=== PATIENT | male | born 1985 | race African-American/Black ===

== ENCOUNTER 2016-12-05 14:24 | Emergency (ER) | payer OTHER ==
[2016-12-05 14:29] VITALS: RESP 16; TEMP 98.2
[2016-12-05] MEDS ORDERED: IBUPROFEN 600 MG TAB PO ONE (14:29)
--- NOTE | 2016-12-05 15:13 | DX ---
Right Ankle 3 Views History: Fall today, pain. Comparison: None available. Findings: There is subtle lucency through the anterolateral aspect of the calcaneus, suggesting a non displaced fracture. Alignment is normal. Bone mineralization is normal. The talar dome and ankle mort ise are intact. There is mild soft tissue swelling. There is no joint effusion. Impression: Probable nondisplaced anterolateral calcaneal fracture. Findings discussed with Jaz Mckinnon today at 1511 hours.
--- NOTE | 2016-12-05 15:16 | EDPHY ---
H & P Time Seen by Provider: 12/05/16 14:49 HPI/ROS: CHIEF COMPLAINT: Right ankle pain HISTORY OF PRESENT ILLNESS: 31-year-old male via private vehicle complaining of acute right lateral ankle pain. Prior history of ankle fracture several years ago. Walking down stairs, slipped and twisted his ankle. He is unable to bear weight secondary to pain. No proximal pain or injury. No head injury. Tetanus up-to-date. No back pain. No neck pain. No peripheral paresthesia, weakness, numbness. No incontinence or retention. No saddle anesthesia. No straddle PRIMARY CARE PROVIDER: REVIEW OF SYSTEMS: A ten point review of systems was performed and is negative with the exception of the items mentioned in the HPI PHYSICAL EXAM injury. 5) LUNGS: Clear auscultation bilaterally, no wheezes, no rhonchi, no retractions. 6) HEART: Regular rate and rhythm, no murmur, no heave, no gallop. 7) ABDOMEN: No guarding, no rebound, no focal tenderness, negative McBurney's, negative Harrison's, negative Rovsing's, negative peritoneal sign, 8) MUSCULOSKELETAL: Right lower extremity: Tender palpation inferior buttock with soft compartments. Right thigh nontender. Right knee and proximal tibia fibula nontender. The right ankle lateral aspect is tender palpation with a noted abrasion no puncture wounds peer the foot is nontender. There is mild tenderness in the posterior calcaneus. There is no deformity. There is no crepitus. There soft compartments of the lower extremity including the foot.DP PT pulses are present and brisk with brisk capillary refill. 9) BACK: No CVA tenderness, no midline vertebral tenderness, no fluctuance, no step-off, no obvious trauma, no visual or palpable abnormality. 10) SKIN: No rash, no petechiae. 11) Psychiatric: Patient is oriented X 3, there is no agitation. DIFFERENTIAL DIAGNOSIS: in no particular order including but not limited to fracture, sprain, compartment syndrome Xray of the right ankle interpreted by myself: no definitive acute osseous abnormality Procedure: Crutches indications for crutch use discussed with patient. Patient fitted for crutches by ER staff. Observed ambulating with crutches. I think the patient has the capacity to safely use crutches. Usual and customary crutch walking precautions provided Procedure: Splint A posterior Ortho Glass splint was applied by ER global position system technician. After application of the splint I returned and re-examined the patient. The splint was adequately immobilizing the joint and distal to the splint the patient's circulation and sensation were intact. Patient shows no signs of compartment syndrome. Was given orthopedic precautions. Recommend nonweightbearing Smoking Status: Former smoker Constitutional: Initial Vital Signs Temperature (C) 36.8 C 12/05/16 14:25 Heart Rate 79 12/05/16 14:25 Respiratory Rate 16 12/05/16 14:25 Blood Pressure 131/82 H 12/05/16 14:25 O2 Sat (%) 96 12/05/16 14:25 O2 Delivery Mode Room Air Allergies/Adverse Reactions: No Known Allergies Allergy (Unverified 12/21/10 19:23) Home Medications: Medication Instructions Recorded oxyCODONE/APAP 5/325 [Percocet 1 tab PO Q6 #10 tab 12/05/16 5/325] MDM/Departure - MDM Diagnostics: Right Ankle 3 Views History: Fall today, pain. Comparison: None available. Findings: There is subtle lucency through the anterolateral aspect of the calcaneus, suggesting a nondisplaced fracture. Alignment is normal. Bone mineralization is normal. The talar dome and ankle mortise are intact. There is mild soft tissue swelling. There is no joint effusion. Impression: Probable nondisplaced anterolateral calcaneal fracture. Findings discussed with Jaz Mckinnon today at 1511 hours. Dictated By: Bertrand Oliva MD Images reviewed by myself Xray of the right hip and pelvis interpreted by myself: no definitive acute osseous abnormality Medications Given: Discontinued Medications Ibuprofen (Motrin) 600 mg PO EDNOW ONE Stop: 12/05/16 14:30 Last Admin: 12/05/16 14:40 Dose: 600 mg ED Course/Re-evaluation: Patient is neurovascularly intact. No evidence of open fracture. No evidence of compartment syndrome. He has been given usual customary orthopedic precautions instructions. Importance of follow-up with orthopedics has been stressed on numerous instances. Recommend nonweightbearing. Analgesia provided. He feels comfortable being discharged. At 4:08 p.m. as patient was being prepared to be discharged informed that he also has right buttock pain. I examined his buttock and he is tender to palpation inferior buttock. He has soft compartments of his buttock. The femur is nontender. Recommended imaging of this area. 4:47 p.m.: Re-evaluation. He has soft compartments. I discussed his negative results showing no definitive pelvic or hip fracture. He is already on crutches and nonweightbearing status for this right lower extremity. - Depart Disposition: Home, Routine, Self-Care Clinical Impression: Calcaneus fracture, right Qualifiers: Encounter type: initial encounter Calcaneus location: body Fracture type: closed Fracture alignment: nondisplaced Qualifier Code: (S92.014A) Nondisplaced fracture of body of right calcaneus, initial encounter for closed fracture Condition: Good Instructions: Calcaneal Fracture (ED) Additional Instructions: Return to the ER immediately if you experience discoloration, have worsening pain, numbness, tingling, or any other symptoms that concern you. If you received x-rays in the emergency department today, be advised, that ligamentous , tendon, muscular, and other non-bony injury cannot be fully ruled out. Try to keep your affected extremity elevated above the level of your chest, and keep cold packs on the affected area, for the next 48 hours. Do not put weight on your leg/foot Prescriptions: oxyCODONE/APAP 5/325 [Percocet 5/325] 1 tab PO Q6 #10 tab Referrals: Vishnu Brewster MD [Medical Doctor] - 2-3 days, call for appt. Lucas Forbes MD [Doctor of Podiatric Medicine] - 2-3 days, call for appt.
--- NOTE | 2016-12-05 17:04 | DX ---
Right hip, 2 views. History: Pain after trauma. Findings: Hip joint spaces are symmetric and normal. Sacroiliac joints and symphysis pubis appear nor mal. No proximal femoral fracture. Incidental note of a bone island within the right femoral neck. Impression: Negative for acute fracture.
[2016-12-05 17:12] VITALS: BP 121/47; PULSE 72; O2SAT 98
== END 2016-12-05 17:00 | disposition home or self-care (01) ==
DX: S92.014A Nondisplaced fracture of body of right calcaneus, initial encounter for closed fracture (principal); Z87.891 Personal history of nicotine dependence; W18.40XA Slipping, tripping and stumbling without falling, unspecified, initial encounter; Y99.8 Other external cause status; Y93.01 Activity, walking, marching and hiking